=== PATIENT | male | born 1980 | race Two or more races ===

== ENCOUNTER 2022-04-16 20:29 | Emergency (ER) | payer SELFPAY ==
[~2022-04-16] VITALS: Ht 170.2 cm; Wt 109.1 kg
[2022-04-17] MEDS ORDERED: KETOROLAC TROMETH 30 MG/ML 1ML VIAL IM ONE (00:15)
[2022-04-17 03:00] VITALS: BP 126/86
== END 2022-04-17 03:00 | disposition home or self-care (01) ==
LOC: ER 20:29
DX: S80.02XA Contusion of left knee, initial encounter (principal); W22.8XXA Striking against or struck by other objects, initial encounter; Y93.89 Activity, other specified; Y92.89 Other specified places as the place of occurrence of the external cause; Y99.8 Other external cause status
CPT/HCPCS: 73502; 73552; 73562; 96372; 99284; J1885